=== PATIENT | female | born 1925 | race Caucasian/White ===

== ENCOUNTER 2016-08-16 13:20 | Emergency (ER) | payer OTHER ==
[~2016-08-16] VITALS: Ht 167.6 cm; Wt 55.9 kg
[2016-08-16 15:30] VITALS: BP 154/87
== END 2016-08-16 15:45 | disposition home or self-care (01) ==
LOC: EME 13:20
DX: M25.571 Pain in right ankle and joints of right foot (principal); R60.0 Localized edema; Z88.2 Allergy status to sulfonamides
CPT/HCPCS: 93971; 99281; 99284